=== PATIENT | female | born 1970 | race Caucasian/White ===

== ENCOUNTER 2018-06-01 17:12 | Emergency (ER) | payer MEDICAID ==
[~2018-06-01] VITALS: Ht 157.5 cm; Wt 64.0 kg
[2018-06-01] MEDS ORDERED: METOPROLOL TARTRATE 25 MG TABLET ONE (17:37)
[2018-06-01] MEDS ORDERED: AMLODIPINE 5 MG TABLET ONE (17:37)
[2018-06-01] MEDS ORDERED: METOPROLOL TARTRATE 50 MG TABLET PO ONE (18:00)
[2018-06-01] MEDS ORDERED: AMLODIPINE 5 MG TABLET PO ONE (18:00)
[2018-06-01] MEDS ORDERED: METOPROLOL TARTRATE 25 MG TABLET PO ONE (18:00)
[2018-06-01 18:25] LABS: BASOPHILS # (AUTO) 0.03 x10^3/uL (0-0.1); BASOPHILS % (AUTO) 0 % (0-1); EOSINOPHILS % (AUTO) 1 % (1-7); LYMPHOCYTES # (AUTO) 1.96 x10^3/uL (1-3.4); LYMPHOCYTES % (AUTO) 18 % (22-44); MD NO; MEAN CORPUSCULAR HEMOGLOBIN 28.8 pg (27.0-34.8); MEAN CORPUSCULAR HGB CONC 33.5 g/dL (32.4-35.8); MEAN PLATELET VOLUME 8.5 fL (7.4-10.4); MONOCYTES % (AUTO) 5 % (2-9); NEUTROPHILS # (AUTO) 8.23 x10^3/uL (1.8-6.8); NEUTROPHILS % (AUTO) 76 % (42-75); PLATELET COUNT 289 x10^3/uL (130-400); RED BLOOD COUNT 4.54 x10^6/uL (3.82-5.3); RED CELL DISTRIBUTION WIDTH 14.4 % (9.6-15.2)
[2018-06-01 18:31] LABS: ALBUMIN 3.5 g/dL (3.4-5.0); ANION GAP 6 mmol/L (5-15); CALCIUM 8.4 mg/dL (8.5-10.1); CHLORIDE 108 mmol/L (98-107)
[2018-06-01 18:37] LABS: ALANINE AMINOTRANSFERASE 58 U/L (12-78); ALKALINE PHOSPHATASE 80 U/L (45-117); BILIRUBIN,TOTAL 0.4 mg/dL (0.2-1.0); CREATININE 0.83 mg/dL (0.55-1.02); TROPONIN I < 0.015 ng/mL (0.000-0.045)
[2018-06-01] MEDS ORDERED: ACETAMINOPHEN 325 MG TABLET PO ONE (19:30)
[2018-06-01 19:39] VITALS: BP 173/81
[2018-06-05] MEDS ORDERED: FURO40TA6 PO (03:49)
[2018-06-05] MEDS ORDERED: METO25TA4 PO (03:49)
[2018-06-05] MEDS ORDERED: GABA300C10 PO (03:49)
[2018-06-05] MEDS ORDERED: AMLO10TA6 PO (03:49)
[2018-06-05] MEDS ORDERED: ALBU6.7H INH (03:52)
[2018-06-05] MEDS ORDERED: SALM50DI INH (03:52)
== END 2018-06-01 19:41 | disposition home or self-care (01) ==
LOC: ED 19:10
DX: R51 Headache (principal); I10 Essential (primary) hypertension; F17.200 Nicotine dependence, unspecified, uncomplicated
CPT/HCPCS: 36415; 71045; 80053; 84484; 85025; 93005; 99285

== ENCOUNTER 2018-06-03 21:54 | Emergency (ER) | payer MEDICAID ==
[~2018-06-03] VITALS: Ht 157.5 cm; Wt 63.9 kg
[2018-06-03] MEDS ORDERED: DEXAMETHASONE 4 MG TABLET ONE (22:59)
[2018-06-03] MEDS ORDERED: IBUPROFEN 200 MG TABLET ONE (22:59)
[2018-06-03] MEDS ORDERED: ONDANSETRON ODT 4 MG ONE (22:59)
[2018-06-03] MEDS ORDERED: DEXAMETHASONE 4 MG TABLET PO ONE (23:00)
[2018-06-03] MEDS ORDERED: ONDANSETRON ODT 4 MG PO ONE (23:00)
[2018-06-03] MEDS ORDERED: IBUPROFEN 200 MG TABLET PO ONE (23:00)
[2018-06-03 23:54] VITALS: BP 142/81
[2018-06-05] MEDS ORDERED: METO25TA4 PO (03:49)
[2018-06-05] MEDS ORDERED: AMLO10TA6 PO (03:49)
[2018-06-05] MEDS ORDERED: GABA300C10 PO (03:49)
[2018-06-05] MEDS ORDERED: FURO40TA6 PO (03:49)
[2018-06-05] MEDS ORDERED: ALBU6.7H INH (03:52)
[2018-06-05] MEDS ORDERED: SALM50DI INH (03:52)
== END 2018-06-03 23:59 | disposition home or self-care (01) ==
LOC: ED 22:30
DX: J02.8 Acute pharyngitis due to other specified organisms (principal); B97.89 Other viral agents as the cause of diseases classified elsewhere; F15.10 Other stimulant abuse, uncomplicated; I10 Essential (primary) hypertension; F17.200 Nicotine dependence, unspecified, uncomplicated; Z88.2 Allergy status to sulfonamides
CPT/HCPCS: 87081; 87880; 99284; Q0162; 87147

== ENCOUNTER 2018-07-13 20:25 | Emergency (ER) | payer MEDICAID ==
[~2018-07-13] VITALS: Ht 160 cm; Wt 68.1 kg
[~2018-07-13 20:25] MED LIST: ALBU6.7H INH; AMLO10TA6 PO; FURO40TA6 PO; GABA300C10 PO; METO25TA4 PO; SALM50DI INH
[2018-07-13 21:26] VITALS: BP 192/98
[2018-07-13] MEDS ORDERED: METOPROLOL TARTRATE 50 MG TABLET PO ONE (21:30)
[2018-07-13] MEDS ORDERED: METOPROLOL TARTRATE 25 MG TABLET ONE (21:48)
== END 2018-07-13 22:01 | disposition home or self-care (01) ==
LOC: ED 20:43
DX: I10 Essential (primary) hypertension (principal); F17.210 Nicotine dependence, cigarettes, uncomplicated; F15.10 Other stimulant abuse, uncomplicated; Z76.0 Encounter for issue of repeat prescription; Z72.9 Problem related to lifestyle, unspecified
CPT/HCPCS: 93005; 99283

== ENCOUNTER 2018-12-06 10:10 | Emergency (ER) | payer MEDICAID ==
[~2018-12-06] VITALS: Ht 160 cm; Wt 66.2 kg
[~2018-12-06 10:10] MED LIST changes: -AMLO10TA6 PO; +AMLO10TA8 PO
--- NOTE | 2018-12-06 10:13 | NUR ---
NIL X 1
--- NOTE | 2018-12-06 10:44 | NUR ---
in room 13. oriented to room for safety.
[2018-12-06] MEDS ORDERED: HYDROcodone/APAP 5/325 TABLET ONE (11:36)
[2018-12-06] MEDS ORDERED: DIPH,PERTUSS(ACELL),TET VAC/PF 0.5 ML IM-VACC ONE ×2 (11:37→12:00)
[2018-12-06] MEDS ORDERED: DIPHTHERIA-TETANUS ADULT 0.5ML IM-VACC ONE (12:00)
[2018-12-06] MEDS ORDERED: HYDROcodone/APAP 5/325 TABLET PO ONE (12:00)
[2018-12-06 12:04] VITALS: BP 132/59
[2018-12-06] MEDS ORDERED: LIDOCAINE 1%-EPI 1:100K, 20ML SQ ONE (13:00)
[2018-12-06] MEDS ORDERED: LIDOCAINE 1%-EPI 1:100K, 20ML ONE (13:01)
--- NOTE | 2018-12-06 13:08 | NUR ---
SBAR HAND-OFF REPORT RECEIVED FROM GEMMA WONG. ASSUMING CARE OF PATIENT.
[2018-12-06] MEDS ORDERED: BACITRACIN ZINC OINT 500U/GM, 0.9 GM ONE (13:22)
--- NOTE | 2018-12-06 14:12 | NUR ---
Patient/Caregiver given discharge instructions and they have confirmed that they understand the instructions. Patient ambulatory with steady gait.
== END 2018-12-06 14:13 | disposition home or self-care (01) ==
LOC: ED 11:08
DX: S01.81XA Laceration without foreign body of other part of head, initial encounter (principal); I10 Essential (primary) hypertension; Z88.2 Allergy status to sulfonamides; T76.21XA Adult sexual abuse, suspected, initial encounter; Y93.01 Activity, walking, marching and hiking; Y92.410 Unspecified street and highway as the place of occurrence of the external cause; Y99.8 Other external cause status
CPT/HCPCS: 12052; 70450; 70486; 90471; 90714; 99284; J3490

== ENCOUNTER 2021-02-23 15:47 | Emergency (ER) | payer MEDICAID ==
[~2021-02-23] VITALS: Ht 160 cm; Wt 62.5 kg
[~2021-02-23 15:47] MED LIST changes: -ALBU6.7H INH; +ALBU6.7H8 INH; +AMLO-211 PO; -AMLO10TA8 PO; -SALM50DI INH; +SALM50DI2 INH
--- NOTE | 2021-02-23 16:30 | NUR ---
TECHNICAL DESIGNER: NIL
[2021-02-23] MEDS ORDERED: ONDANSETRON ODT 4 MG PO ONE (17:00)
[2021-02-23 17:22] LABS: BASOPHILS % (AUTO) 1 % (0-1); EOSINOPHILS % (AUTO) 4 % (1-7); LYMPHOCYTES % (AUTO) 24 % (22-44); MEAN CORPUSCULAR HEMOGLOBIN 26.3 pg (27.0-34.8); MONOCYTES % (AUTO) 6 % (2-9); NEUTROPHILS % (AUTO) 66 % (42-75); PLATELET COUNT 316 x10^3/uL (130-400); RED BLOOD COUNT 4.37 x10^6/uL (3.82-5.3)
[2021-02-23 17:29] LABS: ALANINE AMINOTRANSFERASE 44 U/L (12-78); ALBUMIN 3.2 g/dL (3.4-5.0); ANION GAP 6 mmol/L (5-15); CALCIUM 8.4 mg/dL (8.5-10.1); CHLORIDE 98 mmol/L (98-107); CREATININE 1.91 mg/dL (0.55-1.02)
[2021-02-23 17:30] LABS: ALKALINE PHOSPHATASE 110 U/L (45-117); BILIRUBIN,TOTAL 0.3 mg/dL (0.2-1.0); TOTAL PROTEIN 9.4 g/dL (6.4-8.2)
--- NOTE | 2021-02-23 19:51 | NUR ---
agronomist: Pt ambulatory to room from lobby at this time.
--- NOTE | 2021-02-23 19:51 | NUR ---
INITIAL PT CONTACT. PT PRESENTS TO ED C/O N/V/D X2 DAYS, +BLOATING AND BURPING. "IT COMES IN WAVES, HAPPENED A FEW WEEKS AGO AND NOW ITS BACK AGAIN." PT SITTING UPRIGHT ON VENECIA VARGAS VSS. PT CURRENTLY EATING BAG OF CHIPS AND CANDY, EDUCATED PT ON STOPPING CONSUMPTION UNTIL ERP SEES PT AND DEVELOPS PLAN OF CARE. PT PROVIDED URINE CUP AND EDUCATED ON NEED FOR SAMPLE, UNABLE TO PROVIDE ONE AT THIS TIME. CALL LIGHT AND BELONGINGS WITHIN REACH.
[2021-02-23] MEDS ORDERED: ONDANSETRON ODT 4 MG ONE (19:54)
--- NOTE | 2021-02-23 20:19 | NUR ---
ERP AT BEDSIDE
--- NOTE | 2021-02-23 20:38 | NUR ---
pt ambulatory with steady gait to bathroom to provide urine sample. Sample sent to lab
[2021-02-23] MEDS ORDERED: POTASSIUM CHLORIDE 20 MEQ PACKET ONE (20:44)
[2021-02-23 20:52] LABS: MICROSCOPIC INDICATED
[2021-02-23 20:56] VITALS: BP 138/73
[2021-02-23] MEDS ORDERED: FOSFOMYCIN 3 GM PACKET ONE (20:58)
[2021-02-23] MEDS ORDERED: FOSFOMYCIN 3 GM PACKET PO ONE (21:00)
[2021-02-23] MEDS ORDERED: POTASSIUM CHLORIDE 20 MEQ PACKET PO SCH (21:00)
[2021-02-23] MEDS ORDERED: POTASSIUM CHLORIDE 20 MEQ PACKET PO ONE (21:00)
--- NOTE | 2021-02-23 21:13 | NUR ---
Patient given discharge instructions and they have confirmed that they understand the instructions. Patient ambulatory with steady gait.
== END 2021-02-23 21:14 | disposition home or self-care (01) ==
LOC: ED 16:00
DX: F11.10 Opioid abuse, uncomplicated (principal); R11.2 Nausea with vomiting, unspecified; I10 Essential (primary) hypertension; F17.200 Nicotine dependence, unspecified, uncomplicated
CPT/HCPCS: 36415; 80053; 81001; 85025; 87077; 87086; 99284; Q0162; 87186

== ENCOUNTER 2021-03-10 17:29 | Emergency (ER) | payer MEDICAID ==
[~2021-03-10] VITALS: Ht 160 cm; Wt 60.0 kg
[2021-03-10] MEDS ORDERED: ONDANSETRON ODT 4 MG PO ONE (17:30)
--- NOTE | 2021-03-10 17:45 | NUR ---
EDUAR LOVING FROM [place]IGHBORS [place]. NEIGHBOR CALLED 911 WHEN PT FOUND "PASSED OUT". PT A&OX4, GCS 15. PT STATES HEROIN TODAY. NO NARCAN GIVEN BY KIANNASA. PT C/O N/V/D [id number]. PT CONNECTED TO MONITORING. EKG COMPLETE. CALL LIGHT IN REACH.
[2021-03-10] MEDS ORDERED: PLEASE ENTER HEIGHT AND WEIGHT MC SCH (18:00)
--- NOTE | 2021-03-10 18:11 | NUR ---
PT PROVIDED WATER. PT RESTING COMFORTABLY ON GURNEY. RESP EVEN AND UNLABORED.
[2021-03-10] MEDS ORDERED: ONDANSETRON ODT 4 MG ONE (18:13)
--- NOTE | 2021-03-10 18:14 | NUR ---
ELECTRICAL DESIGNER PER NOV. PT SLEEPING INBETWEEN TALKING AND TAKING MEDS.
--- NOTE | 2021-03-10 18:22 | NUR ---
PER ERMD, PT TO BE MTF.
--- NOTE | 2021-03-10 19:09 | NUR ---
This float RN at bedside to dc pt for primary RN, Elvia. Pt verbalized understanding to dc instructions. Provided patient with detox referal list, highlighted and discussed best local options for women attempting to recover from drug abuse. 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 Pt states that if she changes her mind she will use the resource page provided. Pt ambulatory to dc c steady gait. vss.
[2021-03-10 19:12] VITALS: BP 145/89
== END 2021-03-10 19:14 | disposition home or self-care (01) ==
LOC: ED 19:09
DX: T40.1X1A Poisoning by heroin, accidental (unintentional), initial encounter (principal); F11.129 Opioid abuse with intoxication, unspecified; F17.210 Nicotine dependence, cigarettes, uncomplicated; I10 Essential (primary) hypertension; R11.0 Nausea; Z86.19 Personal history of other infectious and parasitic diseases; Y92.9 Unspecified place or not applicable
CPT/HCPCS: 82962; 93005; 99283; Q0162